=== PATIENT | male | born 1965 | race Hispanic/Latino ===

== ENCOUNTER 2016-05-29 13:42 | Outpatient (CLI) | payer BC ==
[2016-05-29 14:34] LABS: Anion Gap 19 mmol/L; BUN/Creatinine Ratio 15.45; Blood Urea Nitrogen 17 mg/dL (9-20); Calcium 9.4 mg/dL (8.4-10.2); Carbon Dioxide 23 mmol/L (22-30); Chloride 99.6 mmol/L (98-107); Glucose 139 mg/dL (75-100); Potassium 4.4 mmol/L (3.6-5.0); Sodium 137 mmol/L (137-145); Uric Acid 9.3 mg/dL (3.5-7.6)
== END 2016-05-29 13:43 | disposition home or self-care (01) ==
LOC: LAB 13:42
DX: M79.673 Pain in unspecified foot (principal)
CPT/HCPCS: 36415; 80048; 84550; 86140

== ENCOUNTER 2017-04-11 05:49 | Emergency (ER) | payer BC ==
[2017-04-11] MEDS ORDERED: TORADOL IV ONE (06:11)
[2017-04-11] MEDS ORDERED: TORADOL ONE (06:17)
[2017-04-11] MEDS ORDERED: ZOFRAN IV ONE (07:45)
[2017-04-11] MEDS ORDERED: MORPHINE IV ONE (07:45)
[2017-04-11 08:23] LABS: Basophils % (Auto) 0.5 % (0.0-1.8); Eosinophils % (Auto) 1.1 % (0.0-4.3); Hematocrit 43.8 % (35.5-45.6); Hemoglobin 14.5 gm/dl (11.8-15.2); Mean Corpuscular HGB Conc 33 % (32-34); Mean Corpuscular Volume 77 fl (84-94); Platelet Count 217 K/mm3 (140-440); Red Blood Count 5.71 M/mm3 (3.65-5.03); Red Cell Distribution Width 14.9 % (13.2-15.2); White Blood Count 10.6 K/mm3 (4.5-11.0)
[2017-04-11 08:24] LABS: Mean Corpuscular Hemoglobin 25 pg (28-32)
--- NOTE | 2017-04-11 08:30 | Cat Scan Report ---
CT ABDOMEN PELVIS WITHOUT CONTRAST: HISTORY: Left flank pain, history of kidney stones. COMPARISON: none. TECHNIQUE: Helical CT in 1.25mm intervals without IV contrast. Sagittal and coronal reconstructions. FINDINGS: Lung bases: normal. Liver: There is mild fatty change throughout the liver. No enlargement, focal mass or surface nodularity appreciated. Biliary system: normal. Pancreas: normal. Spleen: normal. Kidneys/ureters/bladder: A 3.8 mm calculus is identified at the left UVJ. There is mild left hydronephrosis. 2 or 3 punctate calyceal stones are noted in the mid right kidney. No right ureteral stones. The kidneys are within normal limits otherwise. The bladder is unremarkable. Adrenal glands: normal. Aorta: normal. Intestines: normal. Appendix: normal. Pelvic viscera: normal. Musculoskeletal: normal. IMPRESSION: 3.8 mm stone at the left UVJ with mild left hydronephrosis. Nonobstructing calyceal stones in the right kidney. Mild fatty change throughout the liver.
[2017-04-11 08:41] LABS: Bilirubin,Urine NEG (Negative); Blood,Urine MOD (Negative); Ketones,Urine NEG (Negative); Leukocyte Esterase,Urine NEG (Negative); Mucus,Urine FEW /HPF; Nitrite,Urine NEG (Negative); Protein,Urine <15 mg/dL mg/dL (Negative); Urobilinogen,Urine < 2.0 mg/dL (<2.0)
[2017-04-11 08:42] LABS: Calcium 8.8 mg/dL (8.4-10.2); Chloride 101.3 mmol/L (98-107); Potassium 4.6 mmol/L (3.6-5.0)
[2017-04-11 10:08] VITALS: BP 164/99
--- NOTE | 2017-04-11 10:12 | Emergency Department Report ---
HPI - General Chief Complaint: Abdominal Pain Time Seen by Provider: 04/11/17 07:24 - HPI HPI: The patient is a 51-year-old male presents for evaluation of left flank pain. He reports constant severe left flank pain for the past one day, 10/10 severity , worse this a.m., pressure-like and sharp in quality, radiating into the left lower abdomen. The patient denies fever, chills, night sweats, diarrhea, blood in the stool, dark tarry stool, dysuria, hematuria, genital discharge, inability to pass flatus. He shares that he has a history of recurrent kidney stones. ED Past Medical Hx - Past Medical History Previous Medical History?: Yes Additional medical history: kidney stone - Surgical History Past Surgical History?: Yes Additional Surgical History: shoulder sx 2007, R renal stent placed 2007 - Social History Smoking Status: Never Smoker Substance Use Type: None - Medications Home Medications: Home Medications Medication Instructions Recorded Confirmed Last Taken Type HYDROcodone/ACETAMINOPHEN [[place] 1 each PO Q8HR #20 tablet 04/11/17 Unknown Rx 7.5-325 Tablet] Ibuprofen [Motrin] 800 mg PO Q8HR PRN #14 tablet 04/11/17 Unknown Rx Tamsulosin [Flomax] 0.4 mg PO QDAY #10 cap 04/11/17 Unknown Rx ED Review of Systems ROS: Stated complaint: KIDNEY STONES Other details as noted in HPI Constitutional: denies: fever ENT: denies: throat or neck pain Respiratory: denies: cough, shortness of breath Cardiovascular: denies: chest pain Endocrine: denies unexplained weight loss or gain Gastrointestinal: reports abdominal pain, nausea Genitourinary: reports kidney stones denies: dysuria Musculoskeletal: denies: leg swelling Skin: denies: rash Neurological: denies: headache Hematological/Lymphatic: denies: easy bleeding or easy bruising Psych: denies sadness or hopelessness Physical Exam - Physical Exam Vital Signs: Vital Signs 04/11/17 04/11/17 04/11/17 06:01 07:00 07:39 Temperature 97.5 F L Pulse Rate 82 82 Respiratory 18 16 18 Rate Blood Pressure 159/102 Blood Pressure 146/98 [Right] O2 Sat by Pulse 94 94 Oximetry Physical Exam: General: well-nourished, well-developed, no acute distress Head: Normocephalic, atraumatic Eyes: normal sclera ENT: Mucous membranes are pink and moist Neck: trachea midline, neck supple, No neck stiffness, no cervical adenopathy Respiratory: Breath sounds equal bilaterally, no wheezing, rales, or rhonchi Cardio: S1 and S2 present, no murmurs, rubs, gallops, capillary refill is brisk Abdomen: Normoactive bowel sounds, soft abdomen, suprapubic tenderness with percussion present, no rigidity, no guarding or rebound tenderness Chest WALL/Back: No tenderness to palpation of the chest wall, left CVA tenderness with percussion present Musc: No pitting edema Skin: No rash Neuro: no facial drooping, normal speech Psych: Normal affect ED Course Vital Signs 04/11/17 04/11/17 04/11/17 06:01 07:00 07:39 Temperature 97.5 F L Pulse Rate 82 82 Respiratory 18 16 18 Rate Blood Pressure 159/102 Blood Pressure 146/98 [Right] O2 Sat by Pulse 94 94 Oximetry ED Medical Decision Making - Lab Data Result diagrams: 04/11/17 08:14 04/11/17 08:14 - Medical Decision Making The patient was seen and examined by myself. The patient is placed on a phototypesetting equipment monitor and continuous pulse ox. On initial evaluation, the patient was found to be in no distress. Evaluation orders are placed. IV access is established and the patient is given 1 L normal saline fluid bolus and Zofran for nausea, and IV morphine for pain. Lab results were reassuring including normal creatinine and urinalysis is negative for urinary tract infection. CT scan abdomen and pelvis reveals a 3.8 mm ureter stone at the left UVJ, with mild hydronephrosis. The patient was reevaluated and reported that their symptoms were markedly improved. The patient is stable for discharge with outpatient follow-up. The patient is given follow-up and return instructions. The patient expressed understanding and agreed with the plan. The patient is discharged in stable condition. Critical care attestation.: If time is entered above; I have spent that time in minutes in the direct care of this critically ill patient, excluding procedure time. ED Disposition Clinical Impression: Ureterolithiasis, Acute left flank pain Disposition: - TO HOME OR SELFCARE Is pt being admited?: No Does the pt Need Aspirin: No Condition: Stable Instructions: Kidney Stones (ED), Flank Pain (ED) Prescriptions: HYDROcodone/ACETAMINOPHEN [[place] 7.5-325 Tablet] 1 each PO Q8HR #20 tablet Ibuprofen [Motrin] 800 mg PO Q8HR PRN #14 tablet PRN Reason: Pain Tamsulosin [Flomax] 0.4 mg PO QDAY #10 cap Referrals: ISELA THOMAS MD [Staff Physician] - 3-5 Days VERA MACHADO MD [Staff Physician] - 3-5 Days Time of Disposition: 10:07
== END 2017-04-11 10:23 | disposition home or self-care (01) ==
LOC: ED 05:49
DX: N20.1 Calculus of ureter (principal)
CPT/HCPCS: 36415; 74176; 80048; 81001; 85025; 96374; 99284; J1885

== ENCOUNTER 2019-01-13 08:36 | Outpatient (CLI) | payer BC ==
[2019-01-13 10:51] LABS: Hemoglobin 16.3 gm/dl (11.8-15.2); Mean Corpuscular HGB Conc 33 % (32-34); Mean Corpuscular Volume 79 fl (84-94); Platelet Count 324 K/mm3 (140-440); Red Blood Count 6.19 M/mm3 (3.65-5.03)
[2019-01-13 11:07] LABS: Alanine Aminotransferase 17 units/L (7-56); Albumin 4.7 g/dL (3.9-5); BUN/Creatinine Ratio 15; Blood Urea Nitrogen 16 mg/dL (9-20); Calcium 9.9 mg/dL (8.4-10.2); Hemolysis Index 2
[2019-01-13 11:11] LABS: Chol/HDL Ratio 6.47 %; Uric Acid 8.8 mg/dL (3.5-7.6)
[2019-01-15 07:57] LABS: Vitamin D, 25-OH, D2 <4 ng/mL
== END 2019-01-13 08:37 | disposition home or self-care (01) ==
LOC: LAB 08:36
PROVIDERS: ATTEND Internal Medicine
DX: Z12.5 Encounter for screening for malignant neoplasm of prostate (principal); Z13.220 Encounter for screening for lipoid disorders; Z13.21 Encounter for screening for nutritional disorder; Z13.1 Encounter for screening for diabetes mellitus; M10.00 Idiopathic gout, unspecified site; Z00.00 Encounter for general adult medical examination without abnormal findings
CPT/HCPCS: 36415; 80053; 80061; 82306; 82607; 83036; 84153; 84443; 84550; 85027

== ENCOUNTER 2019-03-04 07:15 | Day surgery (SDC) | payer BC ==
[~2019-03-04 07:15] MED LIST: CELECOXIB 200 MG CAP PO NR; GABAPENTIN 300 MG CAP PO NR; LACTATED RINGERS 1,000 ML IV SCH; MIDAZOLAM 2 MG/2 ML INJ IV NR; ceFAZolin/Water 2 GM/20 ML 2 GM/20 ML SYRINGE IV NR; fentaNYL 100 MCG/2 ML INJ IV PRN
--- NOTE | 2019-03-04 08:32 | Anesthesia Consultation ---
Anesthesia Consult and Med Hx Date of service: 03/04/19 - Airway Anesthetic Teeth Evaluation: Good ROM Head & Neck: Adequate Mental/Hyoid Distance: Inadequate Mallampati Class: Class III Intubation Access Assessment: Possibly Difficult - Pulmonary Exam CTA: Yes - Cardiac Exam Cardiac Exam: RRR - Pre-Operative Health Status ASA Pre-Surgery Classification: ASA1 Proposed Anesthetic Plan: General Nerve Block: TAP - Pulmonary Hx Smoking: No Hx Respiratory Symptoms: No - Cardiovascular System Hx Hypertension: No - Central Nervous System CVA: No - Gastrointestinal Hx Gastroesophageal Reflux Disease: No - Endocrine Hx Renal Disease: No Hx Liver Disease: No Hx Insulin Dependent Diabetes: No Hx Non-Insulin Dependent Diabetes: No Hx Thyroid Disease: No - Other Systems Hx Alcohol Use: (RARELY) Hx Obesity: Yes
--- NOTE | 2019-03-04 08:33 | Anesthesia Day of Surgery ---
Anesthesia Day of Surgery - Day of Surgery Patient Examined: Yes Patient H&P Reviewed: Yes Patient is NPO: Yes
[2019-03-04] MEDS ORDERED: BUPIVACAINE/PF (0.25%) 2.5 MG/ML 30 ML VIAL INFILTRATI ONE (08:40)
[2019-03-04] MEDS ORDERED: dexAMETHasone 4 MG/ML VIAL ONE (08:40)
[2019-03-04] MEDS ORDERED: ONDANSETRON 4 MG/2 ML INJ ONE ×2 (09:32→14:07)
[2019-03-04] MEDS ORDERED: dexAMETHasone 20 MG/5 ML VIAL ONE (09:32)
[2019-03-04] MEDS ORDERED: ROCURONIUM 50 MG/5 ML INJ IV ONE ×2 (09:32→11:26)
[2019-03-04] MEDS ORDERED: LIDOCAINE MPF (2%) 20 MG/1 ML VIAL 5 ML ONE (09:32)
[2019-03-04] MEDS ORDERED: fentaNYL 100 MCG/2 ML INJ ONE (09:33)
[2019-03-04] MEDS ORDERED: PROPOFOL 200 MG/20 ML VIAL IV ONE (09:34)
[2019-03-04] MEDS ORDERED: SUCCINYLCHOLINE CHLORIDE 200 MG/10 ML INJ MDV ONE (11:01)
[2019-03-04] MEDS ORDERED: KETOROLAC 30 MG/1 ML INJ ONE (11:01)
[2019-03-04] MEDS ORDERED: PHENYLEPHRINE/NS 1,000 MCG/10 ML SYRINGE (OR USE) IV ONE ×2 (11:21→11:43)
[2019-03-04] MEDS ORDERED: LACTATED RINGERS 1,000 ML ONE (11:22)
[2019-03-04] MEDS ORDERED: SODIUM CHLORIDE 0.9% IRR 1,500 ML BOTTLE IR ONE (11:25)
--- NOTE | 2019-03-04 12:46 | Short Stay Summary ---
Short Stay Documentation Date of service: 03/04/19 - History Principal diagnosis: umbilical hernia H&P: obtained from office - Allergies and Medications Current Medications: Allergies No Known Allergies Allergy (Verified 03/01/19 12:16) Home Medications Medication Instructions Recorded Confirmed Last Taken Type Allopurinol [Zyloprim] 100 mg PO QDAY 03/01/19 03/04/19 03/02/19 History Colchicine 0.6 mg PO QDAY 03/01/19 03/01/19 Unknown History Active Medications Celecoxib (Celebrex) 200 mg PO PREOP NR Stop: 03/04/19 23:59 Last Admin: 03/04/19 08:16 Dose: 200 mg Documented by: Fentanyl (Sublimaze) 100 mcg IV ONCE PRN PRN Reason: sedation for nerve block Stop: 03/04/19 23:59 Last Admin: 03/04/19 09:55 Dose: 100 mcg Documented by: Gabapentin (Gabapentin) 300 mg PO PREOP NR Stop: 03/04/19 23:59 Last Admin: 03/04/19 08:16 Dose: 300 mg Documented by: Hydromorphone HCl (Dilaudid) 0.5 mg IV Q10MIN PRN PRN Reason: Pain , Severe (7-10) Stop: 03/04/19 16:00 Cefazolin Sodium (Ancef/Sterile Water 2 Gm/20 Ml) 2 gm in 20 mls @ 80 mls/hr IV PREOP NR Stop: 03/04/19 23:59 Lactated Ringer's (Lactated Ringers) 1,000 mls @ 100 mls/hr IV DIRECT SANTIAGO Last Admin: 03/04/19 08:35 Dose: 100 mls/hr Documented by: Midazolam HCl (Versed) 2 mg IV PREOP NR Stop: 03/04/19 23:59 Last Admin: 03/04/19 09:55 Dose: 2 mg Documented by: - Brief post op/procedure progress note Date of procedure: 03/04/19 Pre-op diagnosis: umbilical hernia Post-op diagnosis: other (incarcerated umbilical hernia) Procedure: robotic assisted umbilical hernia repair with mesh Anesthesia: GETA, other (block) Findings: 1.5 cm umbilical hernia defect, incarcerated omentum in hernia Surgeon: FADI BALLESTEROS Furnace Checker: ALEJANDRA MILLER Estimated blood loss: minimal Pathology: none Condition: stable - Hospital course Hospital course: Pt observed in PACU and discharged to home in stable condition when criteria met - Disposition Condition at discharge: Good Disposition: DC-01 TO HOME OR SELFCARE Short Stay Discharge Plan Activity: other (no heavy lifting greater than 15 lbs) Diet: regular Wound: open to air, other (remove umbilical dressing (gauze and clear tape) in 2 days) Additional Instructions: SEE PRINTED DISCHARGE INSTRUCTIONS Follow up with: TEDDY BENSON MD [Primary Care Provider] - 7 Days FADI BALLESTEROS DO [Staff Physician] - 14 Days Prescriptions: Ibuprofen [Motrin 800 MG tab] 800 mg PO Q8HR 5 Days #30 tablet oxyCODONE /ACETAMINOPHEN [Percocet 5/325] 1 tab PO Q4HR PRN #20 tab PRN Reason: Pain , Severe (7-10)
[2019-03-04] MEDS: HYDROmorphone 1 MG/1 ML INJ IV PRN ×2 (13:40→13:47)
[2019-03-04 16:15] VITALS: BP 103/61
--- NOTE | 2019-03-04 19:06 | Post Anesthesia Evaluation ---
- Post Anesthesia Evaluation Patient Participated: Yes Airway Patent: Yes Stable Respiratory Function: Yes Nausea/Vomiting: No Temp > 96.8F: Yes Pain Manageable: Yes Adequeate Hydration: Yes Anesthesia Complications: No
--- NOTE | 2019-03-08 10:07 | Operative Report ---
Operative Report Operative Report: Date of procedure: 03/04/19 Pre-op diagnosis: umbilical hernia Post-op diagnosis: other (incarcerated umbilical hernia) Procedure: robotic assisted umbilical hernia repair with mesh Anesthesia: GETA, other (block) Findings: 1.5 cm umbilical hernia defect, incarcerated omentum in hernia Surgeon: FADI BALLESTEROS Monomer Recovery Supervisor: ALEJANDRA MILLER Estimated blood loss: minimal Pathology: none Condition: stable - Hospital course Hospital course: Pt observed in PACU and discharged to home in stable condition when criteria met HPI an indication: Patient is a 53-year-old male who presented to the office for evaluation of a bulge at his like us. He complained of pain in this area. He was found to have a umbilical hernia which is partially reducible. There was tenderness at the site however no skin changes. He did not have obstructive symptoms. It was recommended that he undergo repair of the umbilical hernia. All risks, benefits, alternatives to surgery were discussed with the patient and questions answered. Consent was obtained. Procedure in detail: Patient was identified in the preoperative area, taken back to operating room placed operating table in supine position. After anesthesia was induced, the abdomen was prepped and draped in the usual sterile fashion and a timeout performed. A ivy incision was made in the left upper quadrant and a palmar splint through which a Veress needle was inserted. The Veress needle positioning was confirmed using the saline drop test. The abdomen was insufflated to 15 mmHg. A 5 mm incision was made in the right upper quadrant through which a 5 mm Optiview trocar was inserted. The abdomen was inspected and there was no underlying injury to any of the abdominal structures. The Veress needle was identified and removed. Omentum was seen adhered to the anterior abdominal wall at the site of the umbilical hernia. An additional 12 mm right lateral balloon trocar and 8mm RLQ robotic troacar was placed under direct visualization. The 5 mm right upper quadrant trocar was replaced with an 8 mm robotic trocar under direct visualization. The robot was undocked with a monopolar scissor and arm #1 and a fenestrated bipolar in arm #2. The surgeon was transferred to the console. I first started by reducing the incarcerated omentum in the umbilical hernia defect. Once the omentum was reduced, I proceeded to create a preperitoneal flap. The peritoneum was scored approximately 5-6 cm from the hernia defect and a preperitoneal dissection carried out in an avascular plane. The hernia sac was encountered and reduced. The dissection was carried further in order to accommodate the mesh. The hernia defect measured approximately 1.5 cm. An 8 cm mesh was chosen to repair the defect. The mesh along with suture material was placed into the abdomen. The abdominal pressure was reduced to 8 mmHg. The fascial defect was closed using running O-V lock suture. The mesh was placed into the preperitoneal flap and centered. This was sutured in all 4 quadrants using 0 Vicryl interrupted suture. The nursing and was then reapproximated using a running 3-0V lock suture. All the mesh was covered with peritoneum and none was visible. The robot was then undocked and the surgeon scrubbed back in. The remainder of the procedure was performed laparoscopically. All needles and suture material were then removed and the abdomen. The 12 mm port was removed and the fascia closed with an interrupted 0 Vicryl suture using the Huey Castillo device. The 8mm ports were removed and the abdomen desufflated. The skin incisions were closed with 4-0 Monocryl subcutaneous taking her stitches and skin glue. A 4 x 4 gauze was placed in the umbilicus and secured with Tegaderm. At the end of the case, all sponge, instrument, sharp counts were correct 2. The patient was awoken from anesthesia, extubated and taken to PACU in stable condition.
== END 2019-03-04 16:20 | disposition home or self-care (01) ==
LOC: OR 07:15
PROVIDERS: ATTEND Surgery
DX: K42.0 Umbilical hernia with obstruction, without gangrene (principal); Z79.899 Other long term (current) drug therapy; E66.9 Obesity, unspecified; Z68.33 Body mass index [BMI] 33.0-33.9, adult; Z87.442 Personal history of urinary calculi; Z72.89 Other problems related to lifestyle; Z98.890 Other specified postprocedural states; Z80.3 Family history of malignant neoplasm of breast; Z80.42 Family history of malignant neoplasm of prostate
CPT/HCPCS: 49653; 64488; C1781; J0330; J0690; J1100; J1170; J1885; J2250; J2370; J2405; J2704; J3010; J7120; S2900; 64450

== ENCOUNTER 2019-05-12 18:09 | Emergency (ER) | payer BC ==
--- NOTE | 2019-05-12 18:24 | Event Note ---
ED Screening Note Date of service: 05/12/19 Time: 18:23 ED Screening Note: 54 y o male with PMH of kidney stone presents with flank pain This initial assessment/diagnostic orders/clinical plan/treatment(s) is/are subject to change based on patients health status, clinical progression and re-assessment by fellow clinical providers in the ED. Further treatment and workup at subsequent clinical providers discretion. Patient/guardian urged not to elope from the ED as their condition may be serious if not clinically assessed and managed. Initial orders include: labs, ua, CT
[2019-05-12] MEDS ORDERED: ONDANSETRON 4 MG/2 ML INJ ONE (18:53)
[2019-05-12] MEDS ORDERED: fentaNYL 100 MCG/2 ML INJ ONE (18:54)
[2019-05-12] MEDS ORDERED: fentaNYL 100 MCG/2 ML INJ IV ONE (19:00)
[2019-05-12] MEDS ORDERED: KETOROLAC 30 MG/1 ML INJ IV ONE (19:02)
[2019-05-12] MEDS ORDERED: ONDANSETRON 4 MG/2 ML INJ IV ONE (19:02)
--- NOTE | 2019-05-12 19:06 | Emergency Department Report ---
HPI - General Chief Complaint: Abdominal Pain Time Seen by Provider: 05/12/19 18:36 - HPI HPI: Room 41 The patient is a 54-year-old male presenting with a chief complaint of right flank pain. The patient has history of kidney stones and at 01:00 this morning he has symptoms which were consistent with that again which included right flank pain nausea vomiting. Patient describes pain as feeling as though someone is sticking with a screwdriver and turning. Oxycodone only helps temporarily. Patient denies history of fever, hematuria or dysuria. Patient gives his pain a score of 8/10 Location: [See above] Duration: [See above] Quality: [See above] Severity: [See above] Timing: [See above] Context: [See above] Modifying factors: [See above] Associated signs and symptoms: [see above] ED Past Medical Hx - Past Medical History Previous Medical History?: Yes Hx Kidney Stones: Yes (RECURRENT, CYSTO WITH LITHO (ONE CASE)) Additional medical history: kidney stone - Surgical History Past Surgical History?: Yes Additional Surgical History: shoulder sx 2007, R renal stent placed 2007 - Family History Family history: no significant - Social History Smoking Status: Never Smoker Substance Use Type: None - Medications Home Medications: Home Medications Medication Instructions Recorded Confirmed Last Taken Type Colchicine 0.6 mg PO QDAY 03/01/19 03/01/19 Unknown History allopurinoL [Zyloprim] 100 mg PO QDAY 03/01/19 03/04/19 03/02/19 History Ibuprofen [Motrin 800 MG tab] 800 mg PO Q8HR 5 Days #30 tablet 03/04/19 Unknown Rx oxyCODONE /ACETAMINOPHEN [Percocet 1 tab PO Q4HR PRN #20 tab 03/04/19 Unknown Rx 5/325] Ketorolac [Toradol] 10 mg PO Q6H PRN #16 tablet 05/12/19 Unknown Rx Ondansetron [Zofran ODT TAB] 8 mg PO Q8HR #20 tab.rapdis 05/12/19 Unknown Rx Promethazine [Phenergan] 25 mg SC Q6HR PRN #10 supp.rect 05/12/19 Unknown Rx oxyCODONE /ACETAMINOPHEN [Percocet 1 - 2 tab PO Q6HR PRN #20 tablet 05/12/19 Unknown Rx 5/325] ED Review of Systems ROS: Stated complaint: KIDNEY STONES Other details as noted in HPI Constitutional: denies: fever Gastrointestinal: abdominal pain, nausea, vomiting Genitourinary: denies: dysuria, hematuria Musculoskeletal: back pain Physical Exam - Physical Exam Vital Signs: Vital Signs 05/12/19 18:16 Temperature 97.8 F Pulse Rate 80 Respiratory 16 Rate Blood Pressure 156/104 O2 Sat by Pulse 97 Oximetry Physical Exam: GENERAL: The patient is well-developed well-nourished male lying on stretcher not appearing to be in acute distress. [] HEENT: Normocephalic. Atraumatic. NECK: Trachea midline CHEST/LUNGS:There is no respiratory distress noted. HEART/CARDIOVASCULAR: Regular. There is no tachycardia. There is no gallop rub or murmur. ABDOMEN: Abdomen is soft, with mild discomfort to palpation in the right lower quadrant. Patient has normal bowel sounds. There is no abdominal distention. SKIN: There is no diaphoresis. NEURO: The patient is awake, alert, and oriented. The patient is cooperative. The patient has normal speech MUSCULOSKELETAL: There is no evidence of acute injury. ED Course Vital Signs 05/12/19 18:16 Temperature 97.8 F Pulse Rate 80 Respiratory 16 Rate Blood Pressure 156/104 O2 Sat by Pulse 97 Oximetry - Reevaluation(s) Reevaluation #1: 05/12/19 21:18 Patient resting comfortably. Denies pain ED Medical Decision Making - Lab Data Result diagrams: 05/12/19 19:23 05/12/19 19:23 Laboratory Tests 05/12/19 05/12/19 05/12/19 19:23 19:23 Unknown WBC 12.3 H RBC 5.74 H Hgb 14.9 Hct 45.2 MCV 79 L MCH 26 L MCHC 33 RDW 14.8 Plt Count 248 Lymph % (Auto) [facility] [place] % (Auto) [facility] [place] Eos % (Auto) [facility] [place] Baso % (Auto) [facility] [place] Lymph # [facility] [place] # [facility] [place] Eos # [facility] [place] Baso # [facility] [place] Seg Neutrophils % [facility] [place] Seg Neutrophils # [facility] [place] Sodium 137 Potassium 4.0 Chloride 98.9 Carbon Dioxide 25 Anion Gap 17 BUN 19 Creatinine 1.7 H Estimated GFR 42 BUN/Creatinine Ratio 11 Glucose 113 H Calcium 8.6 Total Bilirubin 0.50 AST 19 ALT 15 Alkaline Phosphatase 78 Total Protein 6.7 Albumin 4.0 Albumin/Globulin Ratio 1.5 Urine Color Yellow Urine Turbidity Clear Urine pH 5.0 Ur Specific [place] 1.021 Urine Protein <15 mg/dl Urine Glucose (UA) Neg Urine Ketones Tr Urine Blood Mod Urine Nitrite Neg Urine Bilirubin Neg Urine Urobilinogen < 2.0 Ur Leukocyte Esterase Neg Urine WBC (Auto) 1.0 Urine RBC (Auto) 31.0 U Epithel Cells (Auto) < 1.0 Urine Mucus Few - Radiology Data Radiology results: report reviewed (CT abdomen and pelvis), image reviewed (CT abdomen and pelvis) [facility] [address] [place] [address] Cat Scan Report Signed Patient: NARA RUSSO MR#: [id number] : 1965 Acct:[id number] Age/Sex: 54 / M ADM Date: 05/12/19 Loc: ED Attending Dr: Ordering Physician: MARGE MILNER Date of Service: 05/12/19 Procedure(s): CT abdomen pelvis wo con Accession Number(s): [id number] cc: MARGE MILNER CT ABDOMEN AND PELVIS WITHOUT IV CONTRAST INDICATION: RIGHT sided flank / RLQ abdominal Pain. Hx of previous stone(s). COMPARISON: CT 04/11/2017. TECHNIQUE: All CT scans at this facility use dose modulation, automated exposure control, iterative reconstruction or weight based dosing, when appropriate, to reduce radiation dose to as low as reasonably achievable. FINDINGS: Lung Bases: No significant abnormality. Skeletal System: No acute abnormality. ABDOMEN: Liver: No significant abnormality. Gallbladder: No significant abnormality. Bile Ducts: No significant abnormality. Pancreas: No significant abnormality. Spleen: No significant abnormality. Adrenals: No significant abnormality. Right Kidney: There is moderate right hydronephrosis. There is a 2.0 x 0.7 cm stone in the right renal pelvis. There is a 3 mm stone in the proximal right ureter on image 100. There are a couple 2- to 3 mm stones in the distal right ureter on images 132 and 135. Left Kidney: No significant abnormality. Upper GI tract: No significant abnormality. Lymph Nodes: No significant adenopathy. Aorta: No significant abnormality. Additional Findings: No significant abnormality. PELVIS: Colon: No acute abnormality. Urinary Bladder and Distal Ureters: No significant abnormality. Appendix: No significant abnormality. Lymph Nodes: No significant adenopathy. Additional Findings: None. IMPRESSION: 1. There is right hydroureteronephrosis secondary to multiple right ureteral stones, as above. There is also a large 2.0 x 0.7 cm stone in the right renal pelvis. 2. Incidental findings, as above. Signer Name: Jose Salas MD Signed: 05/12/2019 9:02 PM Workstation Name: [id number] Transcribed By: SW Dictated By: Jose Salas MD Electronically Authenticated By: Jose Salas MD Signed Date/Time: 05/12/192101 DD/ 56 TD/TT: - Differential Diagnosis renal colic, pyelonephritis, appendicitis Critical care attestation.: If time is entered above; I have spent that time in minutes in the direct care of this critically ill patient, excluding procedure time. ED Disposition Clinical Impression: Renal colic on right side, Renal insufficiency Disposition: TO HOME OR SELFCARE Is pt being admited?: No Does the pt Need Aspirin: No Condition: Stable Instructions: Renal Colic (ED) Additional Instructions: Return to the emergency department should you develop worsening symptoms, inability to tolerate food or liquids, high fever or any other concerns Prescriptions: oxyCODONE /ACETAMINOPHEN [Percocet 5/325] 1 - 2 tab PO Q6HR PRN #20 tablet PRN Reason: Pain Promethazine [Phenergan] 25 mg SC Q6HR PRN #10 supp.rect PRN Reason: Vomiting Ketorolac [Toradol] 10 mg PO Q6H PRN #16 tablet PRN Reason: Pain Ondansetron [Zofran ODT TAB] 8 mg PO Q8HR #20 tab.rapdis Referrals: ISELA THOMAS MD [Staff Physician] - [facility] Time of Disposition: 21:49
[2019-05-12 20:10] LABS: Calcium 8.6 mg/dL (8.4-10.2); Hematocrit 45.2 % (35.5-45.6); Hemoglobin 14.9 gm/dl (11.8-15.2); Mean Corpuscular HGB Conc 33 % (32-34); Mean Corpuscular Volume 79 fl (84-94); Platelet Count 248 K/mm3 (140-440); Red Blood Count 5.74 M/mm3 (3.65-5.03); Red Cell Distribution Width 14.8 % (13.2-15.2)
--- NOTE | 2019-05-12 21:07 | Cat Scan Report ---
CT ABDOMEN AND PELVIS WITHOUT IV CONTRAST INDICATION: RIGHT sided flank / RLQ abdominal Pain. Hx of previous stone(s). COMPARISON: CT 04/11/2017. TECHNIQUE: All CT scans at this facility use dose modulation, automated exposure control, iterative reconstructi on or weight based dosing, when appropriate, to reduce radiation dose to as low as reasonably achieva ble. FINDINGS: Lung Bases: No significant abnormality. Skeletal System: No acute abnormality. ABDOMEN: Liver: No significant abnormality. Gallbladder: No significant abnormality. Bile Ducts: No significant abnormality. Pancreas: No significant abnormality. Spleen: No significant abnormality. Adrenals: No significant abnormality. Right Kidney: There is moderate right hydronephrosis. There is a 2.0 x 0.7 cm stone in the right quirino l pelvis. There is a 3 mm stone in the proximal right ureter on image 100. There are a couple 2-to 3 mm stones in the distal right ureter on images 132 and 135. Left Kidney: No significant abnormality. Upper GI tract: No significant abnormality. Lymph Nodes: No significant adenopathy. Aorta: No significant abnormality. Additional Findings: No significant abnormality. PELVIS: Colon: No acute abnormality. Urinary Bladder and Distal Ureters: No significant abnormality. Appendix: No significant abnormality. Lymph Nodes: No significant adenopathy. Additional Findings: None. IMPRESSION: 1. There is right hydroureteronephrosis secondary to multiple right ureteral stones, as above. There is also a large 2.0 x 0.7 cm stone in the right renal pelvis. 2. Incidental findings, as above. Signer Name: Jose Salas MD Signed: 05/12/2019 9:02 PM Workstation Name: [id number]
[2019-05-12 21:29] LABS: Bilirubin,Urine NEG (Negative); Blood,Urine MOD (Negative); Color,Urine Yellow (Yellow); Mucus,Urine FEW /HPF; Protein,Urine <15 mg/dL mg/dL (Negative); Urobilinogen,Urine < 2.0 mg/dL (<2.0)
[2019-05-12 22:03] LABS: Total Cells Counted 100
[2019-05-12 22:04] LABS: Basophils % (Manual) 0 % (0.0-1.8); Eosinophils % (Manual) 0 % (0.0-4.3); Platelet Estimate Consistent w Auto; RBC Morphology Normal
[2019-05-12 22:10] VITALS: BP 108/66
== END 2019-05-12 22:10 | disposition home or self-care (01) ==
LOC: ED 18:09
DX: N23 Unspecified renal colic (principal); N28.9 Disorder of kidney and ureter, unspecified; Z87.442 Personal history of urinary calculi; Z79.899 Other long term (current) drug therapy
CPT/HCPCS: 36415; 74176; 80053; 81001; 85007; 85025; 96374; 96375; 99284; J1885; J2405; J3010

== ENCOUNTER 2019-05-25 08:01 | Inpatient (IN) | payer BC ==
[2019-05-25 08:49] LABS: Hematocrit 44.9 % (35.5-45.6); Hemoglobin 14.6 gm/dl (11.8-15.2); Mean Corpuscular HGB Conc 33 % (32-34); Mean Corpuscular Volume 78 fl (84-94); Platelet Count 305 K/mm3 (140-440); Red Blood Count 5.75 M/mm3 (3.65-5.03); Red Cell Distribution Width 14.5 % (13.2-15.2)
[2019-05-25 08:59] LABS: INR 0.92 (0.87-1.13)
[2019-05-25] MEDS ORDERED: SODIUM CHLORIDE 0.9% 500 ML 500 ML IV SCH (09:00)
[2019-05-25 09:01] LABS: Partial Thromboplastin Time 30.4 Sec. (24.2-36.6)
[2019-05-25 09:04] LABS: BUN/Creatinine Ratio 15; Blood Urea Nitrogen 18 mg/dL (9-20); Calcium 9.5 mg/dL (8.4-10.2); Hemolysis Index 24
[2019-05-25] MEDS: diphenhydrAMINE 50 MG/ML VIAL ONE ×2 (11:48→12:01)
[2019-05-25] MEDS: fentaNYL 100 MCG/2 ML INJ ONE ×2 (11:48→11:58)
[2019-05-25] MEDS: MIDAZOLAM 2 MG/2 ML INJ ONE ×2 (11:48→11:58)
[2019-05-25] MEDS ORDERED: LIDOCAINE (2%) 20 MG/1 ML VIAL 20 ML MDV INFILTRATI ONE (11:59)
[2019-05-25] MEDS ORDERED: SODIUM CHLORIDE IRRI 500 ML 500 ML IR ONE (11:59)
[2019-05-25] MEDS ORDERED: MIDAZOLAM 2 MG/2 ML INJ ONE (12:09)
--- NOTE | 2019-05-25 12:26 | Short Stay Summary ---
Short Stay Documentation Date of service: 05/25/19 Narrative H&P: 54 year old male with large renal calculi who presents for R PCN conversion to PCNU for Dr. Elaine to perform PCNL tomorrow. - History Principal diagnosis: renal calculi Past Medical History: other (renal stones, umbilical hernia s/p surgery, gout) Past Surgical History: Other (renal cysto, lithotripsy,) Social history: no significant social history - Allergies and Medications Current Medications: Allergies No Known Allergies Allergy (Verified 03/01/19 12:16) Home Medications Medication Instructions Recorded Confirmed Last Taken Type Colchicine 0.6 mg PO QDAY 03/01/19 05/25/19 05/25/19 06:00 History Potassium Citrate [Potassium 15 meq PO DAILY 05/25/19 05/25/19 05/25/19 06:00 History Citrate ER] Active Medications Sodium Chloride (Nacl 0.9% 500 Ml) 500 mls @ 50 mls/hr IV DIRECT SANTIAGO Levofloxacin/Dextrose (Levaquin 500mg/100ml) 500 mg in 100 mls @ 100 mls/hr IV PREOP NR; Protocol Stop: 05/25/19 12:59 Last Admin: 05/25/19 11:40 Dose: 100 mls Documented by: - Physical exam General appearance: no acute distress Lungs: Normal air movement Gastrointestinal: normal - Brief post op/procedure progress note Date of procedure: 05/25/19 Pre-op diagnosis: Renal stones Post-op diagnosis: same Procedure: PCN conversion to PCNU Anesthesia: local (w/ conscious sedation) Surgeon: CAILIN ABBASI Estimated blood loss: minimal Condition: stable - Hospital course Hospital course: Will be admitted by Dr. Villeda in preparation for PCNL tomorrow by Dr. Elaine. Short Stay Discharge Plan Follow up with: PRIMARY CARE, [Primary Care Provider] - 7 Days
--- NOTE | 2019-05-25 12:29 | Event Note ---
Date: 05/25/19 Will be admitted by Dr. Villeda for PCNL tomorrow by Dr. Elaine. Recommend NPO after MN except sips of water with meds Recommend levoquin x 24 hrs until surgery.
[2019-05-25] MEDS ORDERED: HYDROcodone/ACETAMINOPHEN 5-325 MG TAB PO PRN ×3 (12:50→13:12)
[2019-05-25] MEDS ORDERED: HYDROcodone/ACETAMINOPHEN 10-325MG TAB PO PRN (15:17)
[2019-05-25] MEDS: SODIUM CHLORIDE 0.9% 1000 ML 1,000 ML IV SCH (16:03)
[2019-05-25] MEDS: KETOROLAC 30 MG/1 ML INJ IV PRN ×2 (16:12→22:22)
--- NOTE | 2019-05-25 16:26 | Operative Report ---
Operative Report Operative Report: EXAM: 1. Nephrostogram through the indwelling right 8 [place] nephrostomy tube. 2. Conversion of nephrostomy tube to a nephroureteral pigtail catheter. DATE: 05/25/2019 MEDICAL SCREENER: CAILIN ABBASI MD INDICATION: Large renal calculi with need for PCNU for PCNL. MEDICATIONS: Please see nursing report for full details. DEVICES: 5 [place] 90 cm pigtail catheter CONTRAST: Please see paving and surfacing labourer report for full details PROCEDURE: The risks, benefits, and alternatives were discussed with the patient; written informed consent was obtained. The patient was brought to the angiography suite in satisfactory condition. The patient was placed in a prone position. The tubes were prepped and draped in a sterile fashion. The right nephrostomy tube was evaluated and determined to be intact. The tract demonstrated no evidence of superficial tract infection. 1% lidocaine was injected around the nephrostomy tube for local anesthetic. Contrast was injected through the existing nephrostomy tube confirming position. Nephrostomy tube was in the renal pelvis around a large renal pelvis calculi. There was a large renal pelvis stone with contrast passing from the renal pelvis to the bladder without obstruction with no significant hydronephrosis. The kidney was spontaneously draining fluid into the bladder around the large renal calculi. 0.035 inch wire was then passed through the nephrostomy tube in the tube was removed. Angled catheter was advanced over the wire and the catheter and a 0.035 inch wire were then negotiated through the ureter into the bladder. Wire was coiled in the bladder and then the catheter was removed. 5 [place] pigtail catheter was advanced over the wire and passed into the bladder. One-way valve was attached. Catheter was flushed with contrast confirming position and then with saline. The catheter was secured with 2, 2-0 Ethilon sutures. Sterile dressing applied. No immediate postprocedural complication. FINDINGS: Please see procedure note above. IMPRESSION: Successful conversion of nephrostomy tube to nephroureteral catheter. The patient will be admitted to the hospital by the hospitalist service in preparation for PCNL tomorrow by Dr. Elaine.
[2019-05-25] MEDS ORDERED: ONDANSETRON 4 MG/2 ML INJ IV PRN (19:28)
[2019-05-25] MEDS ORDERED: ACETAMINOPHEN 325 MG TAB PO PRN (19:28)
--- NOTE | 2019-05-25 19:32 | History and Physical Report ---
History of Present Illness Date of examination: 05/25/19 Date of admission: 05/25/19 13:26 Chief complaint: Rt Flank pain 4 days History of present illness: 54 y/o male with recurrent renal stones admitted for Lithotripsy tomottow.patient had Rt Nephrostomy converted to PCNU---9percutaneous nephrostomy ureter by Dr abbasi today.Will keep NPO from midnight todaty for PCNL (percutaneous Nephrostomy Lithotripsy) tomorrow by Dr Elaine.Afebrile .Pain about 6 on a scale of 1 to 10. No fever or chills Past Medical History: other (renal stones, umbilical hernia s/p surgery, gout) Past Surgical History: Other (renal cysto, lithotripsy,) Social history: no significant social history - Allergies and Medications Current Medications: Allergies - Brief post op/procedure progress note Date of procedure: 05/25/19 Pre-op diagnosis: Renal stones Post-op diagnosis: same Procedure: PCN conversion to PCNU--(Successful conversion of nephrostomy tube to nephroureteral catheter.) Anesthesia: local (w/ conscious sedation) Surgeon: CAILIN ABBASI Estimated blood loss: minimal Condition: stable Past History Past Medical History: other (renal stones, umbilical hernia s/p surgery, gout) Past Surgical History: Other (renal cysto, lithotripsy,) Social history: no significant social history Medications and Allergies Allergies Allergy/AdvReac Type Severity Reaction Status Date / Time No Known Allergies Allergy Verified 03/01/19 12:16 Home Medications Medication Instructions Recorded Confirmed Last Taken Type Colchicine 0.6 mg PO QDAY 03/01/19 05/25/19 05/25/19 06:00 History Potassium Citrate [Potassium 15 meq PO DAILY 05/25/19 05/25/19 05/25/19 06:00 History Citrate ER] Active Meds: Active Medications Acetaminophen/Hydrocodone Bitart ([place] 5/325) 1 each PO Q6H PRN PRN Reason: Pain, Moderate (4-6) Acetaminophen/Hydrocodone Bitart ([place] 5/325) 2 each PO NOW PRN PRN Reason: Pain, Moderate (4-6) Last Admin: 05/25/19 12:30 Dose: 2 each Documented by: Acetaminophen/Hydrocodone Bitart ([place] 10/325) 1 each PO Q4H PRN PRN Reason: Pain , Severe (7-10) Colchicine (Colchicine) 0.6 mg PO QDAY SANTIAGO Hydromorphone HCl (Dilaudid) 0.5 mg IV Q3H PRN PRN Reason: Pain , Severe (7-10) Levofloxacin/Dextrose (Levaquin 500mg/100ml) 500 mg in 100 mls @ 100 mls/hr IV Q24HR SANTIAGO; Protocol Sodium Chloride (Nacl 0.9% 1000 Ml) 1,000 mls @ 75 mls/hr IV DIRECT SANTIAGO Last Admin: 05/25/19 16:03 Dose: 75 mls/hr Documented by: Ketorolac Tromethamine (Toradol) 15 mg IV Q6H PRN PRN Reason: Pain, Mild (1-3) Stop: 05/30/19 13:40 Last Admin: 05/25/19 16:12 Dose: 15 mg Documented by: Miscellaneous Medication (Potassium Citrate [Potassium Citrate Er]) 15 meq PO DAILY SANTIAGO Review of Systems All systems: negative Constitutional: no weight loss, no weight gain, no fever, no chills Ears, nose, mouth and throat: deferred Cardiovascular: no chest pain, no orthopnea, no palpitations, no rapid/irregular heart beat, no edema, no syncope, no lightheadedness, no shortness of breath Respiratory: no cough, no cough with sputum, no excessive sputum, no hemoptysis, no shortness of breath, no dyspnea on exertion Gastrointestinal: no abdominal pain, no nausea, no vomiting Genitourinary Male: flank pain, urinary frequency Rectal: no pain Musculoskeletal: no neck stiffness, no neck pain, no shooting arm pain, no arm numbness/tingling Integumentary: no rash, no pruritis, no redness, no sores, no wounds Neurological: no seizures, no syncope Psychiatric: no anxiety, no memory loss, no change in sleep habits, no sleep disturbances Endocrine: no cold intolerance, no heat intolerance, no polyphagia, no excessive thirst, no polydipsia Hematologic/Lymphatic: no easy bruising, no easy bleeding Allergic/Immunologic: no urticaria, no allergic rhinitis, no wheezing Exam - Constitutional Vitals: Temp Pulse Resp BP Pulse Ox 98.7 F 77 14 134/88 95 05/25/19 12:33 05/25/19 13:30 05/25/19 13:30 05/25/19 13:30 05/25/19 13:30 General appearance: Present: no acute distress, well-nourished - EENT Eyes: Present: PERRL ENT: hearing intact, clear oral mucosa - Neck Neck: Present: supple, normal ROM - Respiratory Respiratory effort: normal Respiratory: bilateral: CTA - Cardiovascular Heart Sounds: Present: S1 & S2. Absent: rub, click - Extremities Extremities: pulses symmetrical, No edema Peripheral Pulses: within normal limits - Abdominal General gastrointestinal: Present: soft, non-tender, tender (RT Flank), non- distended, normal bowel sounds Male genitourinary: Present: normal, tender - Rectal Rectal Exam: deferred - Integumentary Integumentary: Present: clear, warm, dry - Musculoskeletal Musculoskeletal: gait normal, strength equal bilaterally - Psychiatric Psychiatric: appropriate mood/affect, intact judgment & insight - Neurologic Neurologic: CNII-XII intact, moves all extremities Results - Labs CBC & Chem 7: 05/25/19 08:28 05/25/19 08:41 Labs: Laboratory Last Values WBC 7.9 K/mm3 (4.5-11.0) 05/25/19 08:28 RBC 5.75 M/mm3 (3.65-5.03) H 05/25/19 08:28 Hgb 14.6 gm/dl (11.8-15.2) 05/25/19 08:28 Hct 44.9 % (35.5-45.6) 05/25/19 08:28 MCV 78 fl (84-94) L 05/25/19 08:28 MCH 25 pg (28-32) L 05/25/19 08:28 MCHC 33 % (32-34) 05/25/19 08:28 RDW 14.5 % (13.2-15.2) 05/25/19 08:28 Plt Count 305 K/mm3 (140-440) 05/25/19 08:28 PT 12.4 Sec. (12.2-14.9) 05/25/19 08:40 INR 0.92 (0.87-1.13) 05/25/19 08:40 APTT 30.4 Sec. (24.2-36.6) 05/25/19 08:40 Sodium 140 mmol/L (137-145) 05/25/19 08:41 Potassium 4.4 mmol/L (3.6-5.0) 05/25/19 08:41 Chloride 102.6 mmol/L (98-107) 05/25/19 08:41 Carbon Dioxide 22 mmol/L (22-30) 05/25/19 08:41 Anion Gap 20 mmol/L 05/25/19 08:41 BUN 18 mg/dL (9-20) 05/25/19 08:41 Creatinine 1.2 mg/dL (0.8-1.5) 05/25/19 08:41 Estimated GFR > 60 ml/min 05/25/19 08:41 BUN/Creatinine Ratio 15 % 05/25/19 08:41 Glucose 115 mg/dL (75-100) H 05/25/19 08:41 Calcium 9.5 mg/dL (8.4-10.2) 05/25/19 08:41 Assessment and Plan Advance Directives: Yes (Full code) VTE prophylaxis?: Chemical Plan of care discussed with patient/family: Yes - Patient Problems (1) Renal colic on right side Current Visit: No Status: Acute Plan to address problem: Sx tx (2) Renal calculus, right Current Visit: Yes Status: Chronic Plan to address problem: For Lithotripsy tomorrow PCNL (3) Gout Current Visit: Yes Status: Inactive Plan to address problem: On COlchicine qd (4) DVT prophylaxis Current Visit: Yes Status: Acute Plan to address problem: On SCD's and GI prophylaxis
[2019-05-25] MEDS: FAMOTIDINE 20 MG/2 ML INJ IV SCH (22:23)
[2019-05-26] MEDS: SODIUM CHLORIDE 0.9% 1000 ML 1,000 ML IV SCH (03:17)
[2019-05-26 08:13] LABS: Basophils # (Auto) 0.2 K/mm3 (0.0-0.1); Basophils % (Auto) 2.2 % (0.0-1.8); Eosinophils # (Auto) 0.4 K/mm3 (0.0-0.4); Eosinophils % (Auto) 4.6 % (0.0-4.3); Hematocrit 44.7 % (35.5-45.6); Hemoglobin 14.6 gm/dl (11.8-15.2); Lymphocytes # (Auto) 3.1 K/mm3 (1.2-5.4); Lymphocytes % (Auto) 33.2 % (13.4-35.0); Mean Corpuscular HGB Conc 33 % (32-34); Mean Corpuscular Volume 79 fl (84-94); Monocytes # (Auto) 0.8 K/mm3 (0.0-0.8); Monocytes % (Auto) 8.5 % (0.0-7.3); Platelet Count 292 K/mm3 (140-440); Red Blood Count 5.64 M/mm3 (3.65-5.03); Red Cell Distribution Width 14.8 % (13.2-15.2)
[2019-05-26 08:31] LABS: Alanine Aminotransferase 17 units/L (7-56); Albumin 3.9 g/dL (3.9-5); BUN/Creatinine Ratio 17; Blood Urea Nitrogen 20 mg/dL (9-20); Calcium 9.1 mg/dL (8.4-10.2); Hemolysis Index 6
[2019-05-26] MEDS: FAMOTIDINE 20 MG/2 ML INJ IV SCH ×2 (09:48→21:12)
[2019-05-26] MEDS ORDERED: POTASSIUM CITRATE 15 MEQ PO SCH (10:00)
[2019-05-26] MEDS ORDERED: MIDAZOLAM 2 MG/2 ML INJ IV NR (11:40)
--- NOTE | 2019-05-26 11:46 | Anesthesia Consultation ---
Anesthesia Consult and Med Hx Date of service: 05/26/19 - Airway Anesthetic Teeth Evaluation: Good ROM Head & Neck: Adequate Mental/Hyoid Distance: Inadequate Mallampati Class: Class III Intubation Access Assessment: Probably Good (previous easy intubation with MAC 4) - Pulmonary Exam CTA: Yes - Cardiac Exam Cardiac Exam: RRR - Pre-Operative Health Status ASA Pre-Surgery Classification: ASA1 Proposed Anesthetic Plan: General - Pulmonary Hx Smoking: No Hx Respiratory Symptoms: No - Cardiovascular System Hx Hypertension: No Hx Heart Attack/AMI: No Hx Percutaneous Transluminal Coronary Angioplasty (PTCA): No - Central Nervous System CVA: No Hx Psychiatric Problems: No - Gastrointestinal Hx Gastroesophageal Reflux Disease: No - Endocrine Hx Renal Disease: No (recurrent renal stones with normal renal function) Hx Liver Disease: No Hx Insulin Dependent Diabetes: No Hx Non-Insulin Dependent Diabetes: No Hx Thyroid Disease: No - Other Systems Hx Obesity: Yes (BMI 32) - Additional Comments Anesthesia Medical History Comments: No hx anesthetic complications.
--- NOTE | 2019-05-26 11:47 | Anesthesia Day of Surgery ---
Anesthesia Day of Surgery - Day of Surgery Patient Examined: Yes Patient H&P Reviewed: Yes Patient is NPO: Yes
[2019-05-26] MEDS: HYDROmorphone 1 MG/1 ML INJ IV PRN ×5 (12:15→23:23)
[2019-05-26] MEDS ORDERED: MINERAL OIL Light (Sterile) 10 ML VIAL TP ONE ×3 (12:26→13:38)
[2019-05-26] MEDS ORDERED: SODIUM CHLORIDE 0.9% 500 ML 500 ML IV NR (12:29)
--- NOTE | 2019-05-26 12:34 | Progress Note ---
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 Elaine using PCNL (percutaneous Nephrostomy Lithotripsy). (1) Renal colic on right side Current Visit: No Status: Acute Plan to address problem: Sx tx toradol works the best (2) Renal calculus, right Current Visit: Yes Status: Chronic Plan to address problem: For Lithotripsy PCNL (3) Gout Current Visit: Yes Status: Inactive Plan to address problem: On COlchicine qd (4) DVT prophylaxis Current Visit: Yes Status: Acute Plan to address problem: On SCD's and GI prophylaxis History Interval history: Patient was seen and examined. Follow-up on current diagnosis of Kidney stones. Overnight uneventful as no events directly reported to me. Patient denies any chest pain, shortness breath, nausea/vomiting or severe headaches. Imaging, nursing note, chart, labs and old chart reviewed. Discussed with patient. Hospitalist Physical - Physical exam Narrative exam: Gen: WDWN, NAD, Awake, Alert, Orientated x 3 HEENT: NCAT, EOMI, PERRL, OP Clear Neck: supple, no adenopathy, no thyromegaly, no JVD CVS/Heart: RRR, normal S1S2, pulses present bilaterally Chest/Lungs: CTA B, Symmetrical chest expansion, good air entry bilaterally GI/Abdomen: soft, NTND, good bowel sounds, no guarding or rebound /Bladder: right CVA tenderness with NT in place Extermity/Skin: no c/c/e, no obvious rash MSK: FROM x 4 Neuro: CN 2-12 grossly intact, no new focal deficits Psych: calm - Constitutional Vitals: Temp Pulse Resp BP Pulse Ox 97.5 F L 72 18 140/97 96 05/26/19 08:35 05/26/19 08:35 05/26/19 08:37 05/26/19 08:35 05/26/19 08:35 General appearance: Present: no acute distress, well-nourished Results - Labs CBC & Chem 7: 05/26/19 07:50 05/26/19 07:50 Labs: Laboratory Last Values WBC 9.2 K/mm3 (4.5-11.0) 05/26/19 07:50 RBC 5.64 M/mm3 (3.65-5.03) H 05/26/19 07:50 Hgb 14.6 gm/dl (11.8-15.2) 05/26/19 07:50 Hct 44.7 % (35.5-45.6) 05/26/19 07:50 MCV 79 fl (84-94) L 05/26/19 07:50 MCH 26 pg (28-32) L 05/26/19 07:50 MCHC 33 % (32-34) 05/26/19 07:50 RDW 14.8 % (13.2-15.2) 05/26/19 07:50 Plt Count 292 K/mm3 (140-440) 05/26/19 07:50 Lymph % (Auto) 33.2 % (13.4-35.0) 05/26/19 07:50 [place] % (Auto) 8.5 % (0.0-7.3) H 05/26/19 07:50 Eos % (Auto) 4.6 % (0.0-4.3) H 05/26/19 07:50 Baso % (Auto) 2.2 % (0.0-1.8) H 05/26/19 07:50 Lymph # 3.1 K/mm3 (1.2-5.4) 05/26/19 07:50 [place] # 0.8 K/mm3 (0.0-0.8) 05/26/19 07:50 Eos # 0.4 K/mm3 (0.0-0.4) 05/26/19 07:50 Baso # 0.2 K/mm3 (0.0-0.1) H 05/26/19 07:50 Seg Neutrophils % 51.5 % (40.0-70.0) 05/26/19 07:50 Seg Neutrophils # 4.7 K/mm3 (1.8-7.7) 05/26/19 07:50 PT 12.4 Sec. (12.2-14.9) 05/25/19 08:40 INR 0.92 (0.87-1.13) 05/25/19 08:40 APTT 30.4 Sec. (24.2-36.6) 05/25/19 08:40 Sodium 140 mmol/L (137-145) 05/26/19 07:50 Potassium 4.6 mmol/L (3.6-5.0) 05/26/19 07:50 Chloride 103.4 mmol/L (98-107) 05/26/19 07:50 Carbon Dioxide 23 mmol/L (22-30) 05/26/19 07:50 Anion Gap 18 mmol/L 05/26/19 07:50 BUN 20 mg/dL (9-20) 05/26/19 07:50 Creatinine 1.2 mg/dL (0.8-1.5) 05/26/19 07:50 Estimated GFR > 60 ml/min 05/26/19 07:50 BUN/Creatinine Ratio 17 % 05/26/19 07:50 Glucose 117 mg/dL (75-100) H 05/26/19 07:50 Hemoglobin A1c 5.9 % (4-6) 05/25/19 08:28 Calcium 9.1 mg/dL (8.4-10.2) 05/26/19 07:50 Total Bilirubin 0.30 mg/dL (0.1-1.2) 05/26/19 07:50 AST 15 units/L (5-40) 05/26/19 07:50 ALT 17 units/L (7-56) 05/26/19 07:50 Alkaline Phosphatase 83 units/L (35-129) 05/26/19 07:50 Total Protein 6.9 g/dL (6.3-8.2) 05/26/19 07:50 Albumin 3.9 g/dL (3.9-5) 05/26/19 07:50 Albumin/Globulin Ratio 1.3 % 05/26/19 07:50 Active Medications - Current Medications Current Medications: Generic Name Dose Route Start Last Admin Trade Name Freq PRN Reason Stop Dose Admin Acetaminophen 650 mg 05/25/19 19:28 Tylenol PO Q4H PRN Pain MILD(1-3)/Fever >100.5/CASTILLO Acetaminophen/Hydrocodone Bitart 1 each 05/25/19 12:50 [place] 5/325 PO Q6H PRN Pain, Moderate (4-6) Acetaminophen/Hydrocodone Bitart 1 each 05/25/19 15:17 [place] 10/325 PO Q4H PRN Pain , Severe (7-10) Colchicine 0.6 mg 05/26/19 10:00 Colchicine PO QDAY SANTIAGO Famotidine 20 mg 05/25/19 22:00 05/26/19 09:48 Pepcid IV 20 mg BID SANTIAGO Administration Hydromorphone HCl 0.5 mg 05/25/19 15:17 Dilaudid IV Q3H PRN Pain , Severe (7-10) Hydromorphone HCl 0.5 mg 05/26/19 11:44 Dilaudid IV 05/26/19 23:59 Q10MIN PRN Pain , Severe (7-10) Levofloxacin/Dextrose 500 mg in 100 mls @ 100 mls/hr 05/26/19 10:00 05/26/19 09:48 Levaquin 500mg/100ml IV 100 mls/hr Q24HR SANTIAGO Administration Protocol Sodium Chloride 1,000 mls @ 75 mls/hr 05/25/19 13:45 05/26/19 03:17 Nacl 0.9% 1000 Ml IV 75 mls/hr DIRECT SANTIAGO Administration Ketorolac Tromethamine 15 mg 05/25/19 13:41 05/25/19 22:22 Toradol IV 05/30/19 13:40 15 mg Q6H PRN Administration Pain, Mild (1-3) Midazolam HCl 2 mg 05/26/19 11:40 Versed IV 05/26/19 20:00 ONCE NR Miscellaneous Medication 15 meq 05/26/19 10:00 Potassium Citrate [Potassium Citrate Er] PO DAILY [facility] Ondansetron HCl 4 mg 05/25/19 19:28 Zofran IV Q8H PRN Nausea And Vomiting Sodium Chloride 10 ml 05/25/19 22:00 05/26/19 09:48 Sodium Chloride Flush Syringe 10 Ml IV 10 ml BID SANTIAGO Administration Sodium Chloride 10 ml 05/25/19 19:28 Sodium Chloride Flush Syringe 10 Ml IV PRN PRN LINE FLUSH
[2019-05-26] MEDS ORDERED: ZOLPIDEM 5 MG TAB PO PRN (15:08)
[2019-05-26] MEDS ORDERED: ONDANSETRON 4 MG ODT TAB PO PRN (15:08)
[2019-05-26] MEDS ORDERED: NALOXONE 0.4 MG/1 ML INJ IV PRN (15:08)
[2019-05-26] MEDS ORDERED: MORPHINE 2 MG/1 ML INJ IV PRN (15:08)
--- NOTE | 2019-05-26 15:08 | Post Operative Note ---
Date of procedure: 05/26/19 Pre-op diagnosis: huge r renal stone Post-op diagnosis: same Findings: same Procedure: r perc nephrolithotomy Anesthesia: GETA Surgeon: ISELA THOMAS Estimated blood loss: 50-100ml Pathology: list (stones) Specimen disposition: given to patient/family Condition: stable Disposition: PACU
--- NOTE | 2019-05-26 16:05 | Fluoroscopy Report ---
FLUOROSCOPY NEPHROSTOGRAM EXISTING RIGHT HISTORY: Right renal calculus FINDINGS: 2.7 minutes of fluoroscopy time was provided by radiology during right nephrolithotomy by urology. 7 fluoroscopic images are presented. The images demonstrate placement of a right ureteral stent which i s in good position on the final image. A small amount of contrast agent is noted in the [employer] colle ting system. No obvious filling defect or abnormal dilatation is detected on the given images. Please correlate with the procedural report. Signer Name: Bennie Martin Jr, MD Signed: 05/26/2019 4:00 PM Workstation Name: [id number]
[2019-05-26] MEDS: KETOROLAC 30 MG/1 ML INJ IV PRN (18:33)
[2019-05-26] MEDS: D5W/0.45% NACL/KCL 20 MEQ 20 MEQ/1,000 ML BAG IV SCH (18:35)
[2019-05-26] MEDS: ceFAZolin/NS 1 GM/50 ML 1 GM/50 ML BAG IV SCH ×2 (18:36→23:25)
[2019-05-26] MEDS: COLCHICINE 0.6 MG CAP PO SCH (19:45)
[2019-05-26] MEDS: DOCUSATE SODIUM 100 MG CAP PO SCH (21:12)
[2019-05-26] MEDS: oxyCODONE /ACETAMINOPHEN 5-325MG TAB PO PRN (21:19)
[2019-05-27] MEDS: D5W/0.45% NACL/KCL 20 MEQ 20 MEQ/1,000 ML BAG IV SCH (03:50)
[2019-05-27] MEDS: oxyCODONE /ACETAMINOPHEN 5-325MG TAB PO PRN (04:35)
[2019-05-27] MEDS: ceFAZolin/NS 1 GM/50 ML 1 GM/50 ML BAG IV SCH (08:28)
[2019-05-27] MEDS: FAMOTIDINE 20 MG/2 ML INJ IV SCH ×2 (08:34→10:06)
[2019-05-27] MEDS: COLCHICINE 0.6 MG CAP PO SCH (10:26)
[2019-05-27] MEDS: DOCUSATE SODIUM 100 MG CAP PO SCH (10:26)
--- NOTE | 2019-05-27 11:32 | Progress Note ---
Assessment and Plan looks well get nephrotogram tube out if mariajose is good spoke with dr rosales home today Subjective Date of service: 05/27/19 Principal diagnosis: renal calculi Objective - Constitutional Vitals: Vital Signs - 12hr 05/26/19 05/26/19 05/27/19 23:40 23:53 04:26 Temperature 97.9 F 97.9 F Pulse Rate 101 H 73 Respiratory 20 18 20 Rate Blood Pressure 127/67 114/79 Blood Pressure [Left] O2 Sat by Pulse 92 94 Oximetry 05/27/19 05/27/19 04:35 08:00 Temperature 97.5 F L Pulse Rate 74 Respiratory 20 18 Rate Blood Pressure Blood Pressure 117/71 [Left] O2 Sat by Pulse 96 Oximetry General appearance: Present: no acute distress - Neck Neck: supple - Respiratory Respiratory effort: normal - Gastrointestinal General gastrointestinal: Present: non-tender - Labs CBC & Chem 7: 05/26/19 07:50 05/26/19 07:50 Labs: Abnormal lab results 05/26/19 Range/Units 13:05 Crossmatch See Detail Medications & Allergies - Medications Allergies/Adverse Reactions: Allergies No Known Allergies Allergy (Verified 03/01/19 12:16) Home Medications: Home Medications Medication Instructions Recorded Confirmed Last Taken Type Colchicine 0.6 mg PO QDAY 03/01/19 05/27/19 05/25/19 08:00 History Potassium Citrate [Potassium 15 meq PO DAILY 05/25/19 05/27/19 05/25/19 08:00 History Citrate ER] allopurinoL [Zyloprim] 100 mg PO DAILY 05/26/19 05/26/19 Unknown History Active Medications: Generic Name Dose Route Start Last Admin Trade Name Freq PRN Reason Stop Dose Admin Acetaminophen 650 mg 05/25/19 19:28 Tylenol PO Q4H PRN Pain MILD(1-3)/Fever >100.5/CASTILLO Acetaminophen/Hydrocodone Bitart 1 each 05/25/19 12:50 [place] 5/325 PO Q6H PRN Pain, Moderate (4-6) Acetaminophen/Hydrocodone Bitart 1 each 05/25/19 15:17 [place] 10/325 PO Q4H PRN Pain , Severe (7-10) Colchicine 0.6 mg 05/26/19 10:00 05/27/19 10:26 Colchicine PO 0.6 mg QDAY SANTIAGO Administration Docusate Sodium 100 mg 05/26/19 22:00 05/27/19 10:26 Colace PO 100 mg BID SANTIAGO Administration Famotidine 20 mg 05/25/19 22:00 05/27/19 10:06 Pepcid IV Not Given BID [facility] Hydromorphone HCl 0.5 mg 05/25/19 15:17 05/26/19 23:23 Dilaudid IV 0.5 mg Q3H PRN Administration Pain , Severe (7-10) Levofloxacin/Dextrose 500 mg in 100 mls @ 100 mls/hr 05/26/19 10:00 05/27/19 10:30 Levaquin 500mg/100ml IV 100 mls/hr Q24HR SANTIAGO Administration Protocol Potassium Chloride/Dextrose/Sod Cl 20 meq in 1,000 mls @ 125 mls/hr 05/26/19 16:00 05/27/19 03:50 D5w/0.45% Nacl/Kcl 20 Meq IV 125 mls/hr DIRECT SANTIAGO Administration Cefazolin Sodium 1 gm in 50 mls @ 100 mls/hr 05/26/19 16:00 05/27/19 08:28 Ancef/Ns 1 Gm/50 Ml IV 05/27/19 16:29 100 mls/hr Q8H SANTIAGO Administration Protocol Ketorolac Tromethamine 15 mg 05/25/19 13:41 05/26/19 18:33 Toradol IV 05/30/19 13:40 15 mg Q6H PRN Administration Pain, Mild (1-3) Miscellaneous Medication 15 meq 05/26/19 10:00 Potassium Citrate [Potassium Citrate Er] PO DAILY [facility] Morphine Sulfate 2 mg 05/26/19 15:08 05/26/19 16:16 Morphine IV 2 mg Q4H PRN Administration Pain, Moderate (4-6) Naloxone HCl 0.1 mg 05/26/19 15:08 Naloxone IV Q2MIN PRN Res Rate </= 8 or 02 SAT < 92% Ondansetron HCl 4 mg 05/25/19 19:28 Zofran IV Q8H PRN Nausea And Vomiting Ondansetron HCl 4 mg 05/26/19 15:08 Zofran Odt PO Q8H PRN Nausea And Vomiting Oxycodone/Acetaminophen 2 tab 05/26/19 15:08 05/27/19 04:35 Percocet 5/325 PO 2 tab Q6H PRN Administration Pain, Moderate (4-6) Sodium Chloride 10 ml 05/25/19 22:00 05/26/19 21:42 Sodium Chloride Flush Syringe 10 Ml IV 10 ml BID SANTIAGO Administration Sodium Chloride 10 ml 05/25/19 19:28 Sodium Chloride Flush Syringe 10 Ml IV PRN PRN LINE FLUSH Zolpidem Tartrate 5 mg 05/26/19 15:08 Ambien PO QHS PRN Sleep
--- NOTE | 2019-05-27 11:33 | Discharge Summary ---
Short Stay Discharge Plan Activity: other (no straining ) Weight Bearing Status: Full Weight Bearing Diet: low fat, low cholesterol Durable Medical Equipment Needed Upon Discharge: other (has stent ) Follow up with: PRIMARY CAREMD [Referring] - 7 Days ISELA THOMAS MD [Staff Physician] - 14 Days
[2019-05-27 12:23] VITALS: BP 129/76
--- NOTE | 2019-05-27 17:16 | Discharge Summary ---
Providers - Providers Date of Admission: 05/25/19 13:26 Date of discharge: 05/27/19 Attending physician: JOSÉ MIGUEL BRUNSON 05/25/19 13:46 Consult to Physician [CONS] Routine Comment: Consulting Provider: ISELA THOMAS Physician Instructions: Reason For Exam: CHRONIC RENAL STONES 05/25/19 13:55 Consult to Physician [CONS] Routine Comment: Consulting Provider: CAILIN ABBASI Physician Instructions: Reason For Exam: HYDRONEPHROSIS, RENAL STONES 05/26/19 Consult to Case Management [CONS] Routine Services Needed at Discharge: Home Health Services Notified:: cm notified Primary care physician: TEDDY BENSON Hospitalization Hospital course: Patient is a 54 yo man who 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 Thomas using PCNL (percutaneous Nephrostomy Lithotripsy) which was done on 05/26/2019. Discharge Diagnoses: Nephrolithiasis s/p Right percataneous nephrolithotomy with large stones removal Renal colic on right side with right Nephrostomy tube still place and stent also still in place Gout on Allopurinol 100mg/day Hyperglycemia, A1c 5.9 down from 6.6 Disposition: DC-01 TO HOME OR SELFCARE Time spent for discharge: 34 minutes Core Measure Documentation - Palliative Care Palliative Care/ Comfort Measures: Not Applicable - Core Measures Any of the following diagnoses?: none - VTE Discharge Requirements Deep Vein Thrombosis/Pulmonary Embolism Present on Admission: No Has pt received <5 days of overlap therapy or INR<2.0: No Anticoagulant overlap therapy prescribed at discharge: No Contraindication No Overlap Therapy order at DC: Not Indicated Exam - Physical Exam Narrative exam: Gen: WDWN, NAD, Awake, Alert, Orientated x 3 HEENT: NCAT, EOMI, PERRL, OP Clear Neck: supple, no adenopathy, no thyromegaly, no JVD CVS/Heart: RRR, normal S1S2, pulses present bilaterally Chest/Lungs: CTA B, Symmetrical chest expansion, good air entry bilaterally GI/Abdomen: soft, NTND, good bowel sounds, no guarding or rebound /Bladder: right CVA tenderness with NT in place Extermity/Skin: no c/c/e, no obvious rash MSK: FROM x 4 Neuro: CN 2-12 grossly intact, no new focal deficits Psych: calm - Constitutional Vitals: Temp Pulse Resp BP Pulse Ox 97.9 F 75 18 129/76 97 05/27/19 12:20 05/27/19 12:20 05/27/19 12:20 05/27/19 12:20 05/27/19 12:20 Plan Activity: other (no strenous activity unless cleared by Dr. Thomas) Diet: regular (low Carbs) Follow up with: ISELA THOMAS MD [Staff Physician] - 14 Days PRIMARY CAREMD [Referring] - 7 Days
--- NOTE | 2019-05-28 10:17 | Fluoroscopy Report ---
FLUOROSCOPY URETER NEPHROSTOMY DILATATION RIGHT HISTORY: Right renal stone FINDINGS: 2.7 minutes of fluoroscopy time was provided by radiology during nephrostogram performed by urology. 2 fluoroscopic images are presented demonstrating balloon dilatation of the nephrostomy tra ct. Please correlate with the procedural report as needed. Signer Name: Bennie Martin Jr, MD Signed: 05/28/2019 10:13 AM Workstation Name: [id number]
== END 2019-05-27 13:20 | disposition home or self-care (01) | DRG 694 ==
LOC: CATHLABREC 08:01 → 3B-SURG 13:26 → EEVIPCON 13:26
PROVIDERS: ADMIT Internal Medicine; ATTEND Internal Medicine
PROC: 0T9330Z Drainage of Right Kidney Pelvis with Drainage Device, Percutaneous Approach (ICD-10-PCS; principal; 2019-05-25)
PROC: BT111ZZ Fluoroscopy of Right Kidney using Low Osmolar Contrast (ICD-10-PCS; 2019-05-26)
DX: N20.0 Calculus of kidney (principal); M10.9 Gout, unspecified; E66.9 Obesity, unspecified; R73.9 Hyperglycemia, unspecified; Z68.32 Body mass index [BMI] 32.0-32.9, adult
CPT/HCPCS: 36415; 50434; 80048; 80053; 83036; 85025; 85027; 85610; 85730; 86850; 86900; 86901; 86920; G0378; C1726; C1769; C2617; J0690; J1170; J1200; J1885; J1956; J2250; J2270; J3010; J7030; J7040; Q9967

== ENCOUNTER 2019-06-09 10:07 | Day surgery (SDC) | payer BC ==
[2019-06-09] MEDS ORDERED: LACTATED RINGERS 1,000 ML IV SCH (10:27)
[2019-06-09] MEDS ORDERED: LACTATED RINGERS 1,000 ML ONE (10:32)
--- NOTE | 2019-06-09 11:12 | Anesthesia Consultation ---
Anesthesia Consult and Med Hx Date of service: 06/09/19 - Airway Anesthetic Teeth Evaluation: Good ROM Head & Neck: Adequate Mental/Hyoid Distance: Adequate Mallampati Class: Class I Intubation Access Assessment: Good - Pulmonary Exam CTA: Yes - Cardiac Exam Cardiac Exam: RRR - Pre-Operative Health Status ASA Pre-Surgery Classification: ASA2 Proposed Anesthetic Plan: General - Pre-Anesthesia Comment Pre-Anesthesia Comments: Gout - Pulmonary Hx Smoking: No Hx Respiratory Symptoms: No Hx Sleep Apnea: No (STANISLAW PRE SCREEN HIGH RISK) - Cardiovascular System Hx Hypertension: No Hx Heart Attack/AMI: No Hx Percutaneous Transluminal Coronary Angioplasty (PTCA): No - Central Nervous System CVA: No Hx Psychiatric Problems: No - Gastrointestinal Hx Gastroesophageal Reflux Disease: No - Endocrine Hx Renal Disease: No (recurrent renal stones with normal renal function) Hx Liver Disease: No Hx Insulin Dependent Diabetes: No Hx Non-Insulin Dependent Diabetes: No Hx Thyroid Disease: No - Other Systems Hx Alcohol Use: (RARELY) Hx Substance Use: No Hx Cancer: No Hx Obesity: Yes (BMI 32)
--- NOTE | 2019-06-09 11:13 | Anesthesia Day of Surgery ---
Anesthesia Day of Surgery - Day of Surgery Patient Examined: Yes Patient H&P Reviewed: Yes Patient is NPO: Yes
[2019-06-09] MEDS ORDERED: HYDROmorphone 1 MG/1 ML INJ IV PRN (11:14)
[2019-06-09] MEDS ORDERED: fentaNYL 100 MCG/2 ML INJ IV PRN (11:14)
[2019-06-09] MEDS ORDERED: ONDANSETRON 4 MG/2 ML INJ IV PRN (11:14)
[2019-06-09] MEDS ORDERED: HYDROcodone/ACETAMINOPHEN 5-325 MG TAB PO PRN (11:14)
[2019-06-09] MEDS ORDERED: ceFAZolin/STERILE WATER 2 GM/20 ML SYRINGE IV NR (11:28)
[2019-06-09] MEDS ORDERED: FAMOTIDINE 20 MG/2 ML INJ IV NR (12:00)
[2019-06-09] MEDS ORDERED: MIDAZOLAM 2 MG/2 ML INJ IV NR (12:00)
[2019-06-09] MEDS ORDERED: LIDOCAINE MPF (2%) 20 MG/1 ML VIAL 5 ML ONE (12:08)
[2019-06-09] MEDS ORDERED: fentaNYL 100 MCG/2 ML INJ ONE (12:08)
[2019-06-09] MEDS ORDERED: PROPOFOL 200 MG/20 ML VIAL IV ONE (12:08)
[2019-06-09] MEDS ORDERED: MIDAZOLAM 2 MG/2 ML INJ ONE (12:30)
[2019-06-09] MEDS ORDERED: IOHEXOL 300 MG/ML 50ML IV ONE (13:05)
[2019-06-09] MEDS ORDERED: ONDANSETRON 4 MG/2 ML INJ ONE (13:05)
[2019-06-09] MEDS ORDERED: dexAMETHasone 20 MG/5 ML VIAL ONE (13:05)
--- NOTE | 2019-06-09 13:42 | Post Operative Note ---
Date of procedure: 06/09/19 Pre-op diagnosis: r renal stones Post-op diagnosis: same Findings: gravel Procedure: cysto rpg ureteroscopy Anesthesia: GETA Surgeon: ISELA THOMAS Estimated blood loss: none Pathology: none Condition: stable Disposition: PACU
--- NOTE | 2019-06-09 13:43 | Discharge Summary ---
Short Stay Discharge Plan Activity: other (no straining ) Weight Bearing Status: Full Weight Bearing Diet: low fat, low cholesterol, low salt Wound: keep clean and dry Special Instructions: other (neph tube care ) Durable Medical Equipment Needed Upon Discharge: other (pervc tube ) Follow up with: TEDDY BENSON MD [Primary Care Provider] - 7 Days ISELA THOMAS MD [Staff Physician] - 7 Days
--- NOTE | 2019-06-09 13:50 | Operative Report ---
PREOPERATIVE DIAGNOSIS: Retained stent, large renal stones. POSTOPERATIVE DIAGNOSIS: Retained stent, large renal stones. PROCEDURE: Cystoscopy, stent removal, right ureteroscopy, right retrograde, right nephrostogram. SURGEON: Dr. Elaine. ANESTHESIA: General. FINDINGS: This is a gentleman with a huge stone that was extracted percutaneously. He did not want to have the stent removed in the office. DESCRIPTION OF PROCEDURE: The patient was brought to the operating room and placed on the operating table. Following induction of anesthesia, placed in lithotomy position, prepped and draped in usual sterile fashion. The stent was withdrawn to the meatus and a wire coiled in the renal pelvis. Flexible ureteroscopy through the nephrostomy tube, which showed minimal gravel with no large stones in the ureter. We took the wire out and followed the ureter all the way down. There were no big stones. There was some gravel. The patient tolerated the procedure well. Nephrostogram showed drainage. The patient tolerated the procedure well. We plugged the nephrostomy tube and he was brought to recovery in stable condition. Family notified. JOB# [id number] TYRA/MARY
--- NOTE | 2019-06-09 13:54 | Fluoroscopy Report ---
12 fluoroscopic images submitted Indication: Intraoperative localization Impression: 12 images of the abdomen were submitted for documentation purposes with radiology armando abad. A right-sided nephrostogram was performed utilizing approximately 25 mL of Omnipaque 300. A r ight-sided double-J ureteral stent was also placed. Please refer to the operative note for complete d etails. Fluoroscopic time: 1.5 minutes Signer Name: Jd Sharma MD Signed: 06/09/2019 1:49 PM Workstation Name: [id number]
--- NOTE | 2019-06-09 14:59 | Post Anesthesia Evaluation ---
- Post Anesthesia Evaluation Patient Participated: Yes Airway Patent: Yes Stable Respiratory Function: Yes Temp > 96.8F: Yes Pain Manageable: Yes Adequeate Hydration: Yes Anesthesia Complications: No
[2019-06-09 15:38] VITALS: BP 144/100
--- NOTE | 2019-06-09 17:58 | Ultrasound Report ---
TRANSRECTAL ULTRASOUND INDICATION: PROSTATE BX. COMPARISON: None available. FINDINGS: Transrectal ultrasound was performed for prostate biopsy. The prostate volume is 41.7 cc. Please see procedure note for description of the biopsy procedure. Signer Name: Gurwinder Bowen MD Signed: 06/09/2019 5:53 PM Workstation Name: [id number]
== END 2019-06-09 15:30 | disposition home or self-care (01) ==
LOC: OR 10:07
PROVIDERS: ATTEND Urology
DX: N20.0 Calculus of kidney (principal); T83.192A Other mechanical complication of indwelling ureteral stent, initial encounter; M10.9 Gout, unspecified; E66.9 Obesity, unspecified; Z68.32 Body mass index [BMI] 32.0-32.9, adult; Z72.89 Other problems related to lifestyle; Z80.42 Family history of malignant neoplasm of prostate; Z80.3 Family history of malignant neoplasm of breast; Z79.899 Other long term (current) drug therapy; Y83.9 Surgical procedure, unspecified as the cause of abnormal reaction of the patient, or of later complication, without mention of misadventure at the time of the procedure; Y92.89 Other specified places as the place of occurrence of the external cause
CPT/HCPCS: 36415; 50431; 52310; 74420; 76872; 82365; C1758; C1769; J0690; J1100; J2250; J2405; J2704; J3010; J7120; Q9967

== ENCOUNTER 2020-02-11 12:34 | Outpatient (CLI) | payer BC | END 2020-02-11 12:35 | disposition home or self-care (01) | LOC: LAB 12:34 | PROVIDERS: ATTEND Urology | DX: Z12.5 Encounter for screening for malignant neoplasm of prostate (principal) | CPT/HCPCS: 36415; 84153 ==

== ENCOUNTER 2020-08-18 10:58 | Outpatient (CLI) | payer BC ==
--- NOTE | 2020-08-18 13:09 | XRay Report ---
CHEST 2 VIEWS INDICATION / CLINICAL INFORMATION: COUGH. COMPARISON: None available. FINDINGS: SUPPORT DEVICES: None. HEART / MEDIASTINUM: No significant abnormality. LUNGS / PLEURA: There is a nodular opacity projecting over the right lower lobe. ADDITIONAL FINDINGS: No significant additional findings. IMPRESSION: 1. Small nodular opacity projecting over the right lower lobe. This could indicate a nipple shadow bu t is not definite. Repeat exam with nipple markers or further evaluation with CT of the chest recomme nded. Signer Name: Luis Daniel Cavazos MD Signed: 08/18/2020 1:04 PM Workstation Name: [id number]
== END 2020-08-18 10:59 | disposition home or self-care (01) ==
LOC: XRAY 10:58
PROVIDERS: ATTEND Internal Medicine
DX: R05 Cough (principal)
CPT/HCPCS: 71046

== ENCOUNTER 2021-06-26 13:39 | Outpatient (CLI) | payer BC ==
--- NOTE | 2021-06-26 15:23 | XRay Report ---
LEFT SHOULDER 3 VIEW(S) INDICATION / CLINICAL INFORMATION: PAIN IN LEFT SHOULDER COMPARISON: None available. FINDINGS: BONES / JOINT(S): No acute fracture or subluxation. No significant arthritis. SOFT TISSUES: No significant abnormality. ADDITIONAL FINDINGS: None. Signer Name: Jerardo Santos MD Signed: 06/26/2021 3:19 PM Workstation Name: [email or web address]
== END 2021-06-26 13:40 | disposition home or self-care (01) ==
LOC: XRAY 13:39
PROVIDERS: ATTEND Internal Medicine
DX: M25.512 Pain in left shoulder (principal)

== ENCOUNTER 2021-06-28 12:44 | Outpatient (CLI) | payer BC ==
[2021-06-28 13:26] LABS: Basophils # (Auto) 0.1 K/mm3 (0.0-0.1); Basophils % (Auto) 1.9 % (0.0-1.8); Eosinophils # (Auto) 0.3 K/mm3 (0.0-0.4); Eosinophils % (Auto) 5.4 % (0.0-4.3); Hematocrit 45.3 % (35.5-45.6); Hemoglobin 15.4 gm/dl (11.8-15.2); Lymphocytes # (Auto) 2.4 K/mm3 (1.2-5.4); Lymphocytes % (Auto) 38.2 % (13.4-35.0); Mean Corpuscular HGB Conc 34 % (32-34); Mean Corpuscular Volume 79 fl (84-94); Monocytes # (Auto) 0.6 K/mm3 (0.0-0.8); Monocytes % (Auto) 9.1 % (0.0-7.3); Platelet Count 249 K/mm3 (140-440); Red Blood Count 5.76 M/mm3 (3.65-5.03); Red Cell Distribution Width 14.9 % (13.2-15.2)
[2021-06-28 14:10] LABS: Alanine Aminotransferase 33 units/L (7-56); Albumin 4.8 g/dL (3.9-5); BUN/Creatinine Ratio 15; Blood Urea Nitrogen 17 mg/dL (9-20); Calcium 9.6 mg/dL (8.4-10.2); HDL Cholesterol 38 mg/dL (40-59); Hemolysis Index 9; LDL Cholesterol,Direct 156 mg/dL (50-130)
== END 2021-06-28 12:45 | disposition home or self-care (01) ==
LOC: LAB 12:44
PROVIDERS: ATTEND Internal Medicine
DX: Z00.00 Encounter for general adult medical examination without abnormal findings (principal); E55.9 Vitamin D deficiency, unspecified; M10.00 Idiopathic gout, unspecified site; R53.83 Other fatigue; E11.9 Type 2 diabetes mellitus without complications; E78.5 Hyperlipidemia, unspecified; I10 Essential (primary) hypertension
CPT/HCPCS: 36415; 80053; 80061; 83036; 84443; 85025

== ENCOUNTER 2021-12-11 12:08 | Outpatient (CLI) | payer BC ==
[2021-12-11 12:50] LABS: Chol/HDL Ratio 7.06 %
== END 2021-12-11 12:09 | disposition home or self-care (01) ==
LOC: LABHHL 12:08
PROVIDERS: ATTEND Internal Medicine
DX: E11.9 Type 2 diabetes mellitus without complications (principal); E78.5 Hyperlipidemia, unspecified
CPT/HCPCS: 36415; 80061; 83036

== ENCOUNTER 2021-12-19 10:36 | Outpatient (CLI) | payer BC ==
[2021-12-19 13:00] LABS: BUN/Creatinine Ratio 12; Blood Urea Nitrogen 13 mg/dL (9-20); Calcium 9.8 mg/dL (8.4-10.2); Hemolysis Index 1
== END 2021-12-19 10:37 | disposition home or self-care (01) ==
LOC: LABHHL 10:36
PROVIDERS: ATTEND Internal Medicine
DX: E87.6 Hypokalemia (principal)
CPT/HCPCS: 36415; 80048